=== PATIENT | female | born 1960 | race Caucasian/White ===

== ENCOUNTER 2020-08-14 08:38 | Outpatient (CLI) | payer OTHER | END 2020-08-14 23:59 | disposition home or self-care (01) | LOC: CARD 08:38 | PROVIDERS: ATTEND Family Medicine | DX: G56.01 Carpal tunnel syndrome, right upper limb (principal); M47.812 Spondylosis without myelopathy or radiculopathy, cervical region; R20.0 Anesthesia of skin | CPT/HCPCS: 95886; 95908 ==